=== PATIENT | female | born 1995 | race Caucasian/White ===

== ENCOUNTER 2022-11-09 21:40 | Emergency (ER) | payer OTHER ==
[2022-11-09] MEDS ORDERED: HYDROCODONE/APAP 5/325 MG TAB ONE (22:13)
[2022-11-09] MEDS ORDERED: LIDOCAINE 1% MPF 5 ML VIAL ONE ×2 (22:13→23:28)
[2022-11-09] MEDS ORDERED: BUPIVACAINE 0.5% PF 10 ML VIAL ONE (22:26)
--- NOTE | 2022-11-09 22:46 | RAD REPORT ---
EXAM DESCRIPTION: - Finger-Thumb Left - 11/09/2022 10:25 pm CLINICAL HISTORY: Thumb pain FINDINGS: No fracture or dislocation seen
[2022-11-09] MEDS ORDERED: ONDANSETRON 4 MG (ODT) TAB ONE (22:55)
--- NOTE | 2022-11-09 23:53 | ER ---
Nurse's Notes [facility] Name: Daphney Araiza Age: 26 yrs Sex: Female : 1995 Arrival Date: 11/09/2022 Time: 21:43 Bed 11 Private MD: Diagnosis: Nail avulsion;Crushing injury of left hand, initial encounter Presentation: 11/09 22:23 Chief complaint: Patient states: my nail got removed by a door and it is very painful. ha1 Ebola Screen: No symptoms or risks identified at this time. Initial Sepsis Screen: Does the patient meet any 2 criteria? No. Patient's initial sepsis screen is negative. Does the patient have a suspected source of infection? No. Patient's initial sepsis screen is negative. Risk Assessment: Do you want to hurt yourself or someone else? Patient reports no desire to harm self or others. Onset of symptoms was November 09, 2022. 22:23 Method Of Arrival: Ambulatory 1 22:23 Acuity: KATHARINA 4 ha1 Triage Assessment: 22:28 General: Appears uncomfortable, Behavior is anxious, crying. Pain: Complains of pain in ha1 left hand Pain does not radiate. Pain currently is 10 out of 10 on a pain scale. Cardiovascular: Capillary refill < 3 seconds Patient's skin is warm and dry. Respiratory: Airway is patent Respiratory effort is even, unlabored, Respiratory pattern is regular, symmetrical. GI: No signs and/or symptoms were reported involving the gastrointestinal system. Musculoskeletal: Circulation, motion, and sensation intact. Range of motion: intact in all extremities. Injury Description: Foreign body is located left hand finger. Historical: - Allergies: 22:28 sink metal; ha1 - Home Meds: 22:28 None [Active]; ha1 - PMHx: 22:28 None; ha1 - Immunization history:: Adult Immunizations up to date. - Social history:: Smoking status: Patient denies any tobacco usage or history of. Screenin:31 [facility] ED Fall Risk Assessment (Adult) History of falling in the last 3 months, ha1 including since admission No falls in past 3 months (0 pts) Confusion or Disorientation No (0 pts) Intoxicated or Sedated No (0 pts) Impaired Gait No (0 pts) Mobility Assist Device Used No (0 pt) Altered Elimination No (0 pt) Score/Fall Risk Level 0 - 2 = Low Risk Oriented to surroundings, Maintained a safe environment, Educated pt \T\ family on fall prevention, incl call for assistance when getting out of bed. Abuse screen: Denies threats or abuse. Denies injuries from another. Nutritional screening: No deficits noted. Tuberculosis screening: No symptoms or risk factors identified. Assessment: 22:05 General: see triage assessment . ha1 22:40 Reassessment: Patient and/or family updated on plan of care and expected duration. Pain ha1 level reassessed. Patient is alert, oriented x 3, equal unlabored respirations, skin warm/dry/pink. 5/10. Vital Signs: 22:23 BP 134 / 86; Pulse 108; Resp 20 S; Temp 98.5; Pulse Ox 96% on R/A; Weight 63.5 kg; ha1 Height 5 ft. 7 in. ; Pain 10/10; 22:23 Body Mass Index 21.93 (63.50 kg, 170.18 cm) ha1 22:23 Pain Scale: Adult ha1 ED Course: 21:43 Patient arrived in ED. jj6 21:51 Garcia Duff DO is Attending Physician. ms3 22:27 Finger-Thumb LEFT XRAY In Process Unspecified. EDMS 22:28 Triage completed. ha1 22:31 Patient has correct armband on for positive identification. Bed in low position. Call ha1 light in reach. Side rails up X 1. 23:50 Red Salazar MD is Referral Physician. ms3 Administered Medications: 22:10 Drug: HYDROcodone-acetaminophen PO 5 mg-325 mg 1 tabs Route: PO; kl 22:51 Drug: Ondansetron PO 4 mg Route: PO; kl 22:54 Drug: Bupivacaine Infiltration (0.5 %) 5 ml {Note: administered by Waqas Page.} Volume: kl 10 ml; Route: Infiltration; 22:54 Drug: Lidocaine Infiltration (1 %) 5 ml {Note: administered by Waqas Page .} Volume: 5 kl ml; Route: Infiltration; 23:24 Drug: Lidocaine Infiltration (1 %) 5 mg {Note: administered by care provider.} Route: ha1 Infiltration; Outcome: 23:53 Discharge ordered by . ms3 Signatures: Dispatcher [employer] EDMS Sariah Macario RN RN kl Sims, Marcus, DO DO ms3 Liza Amanda [email or web address] Michelle Gonzalez, RN RN ha1
--- NOTE | 2022-11-09 23:53 | EDPHYS ---
Physician Documentation [facility] Name: Daphney Araiza Age: 26 yrs Sex: Female : 1995 Arrival Date: 11/09/2022 Time: 21:43 Bed 11 Private MD: ED Physician Garcia Duff HPI: 11/09 22:14 This 26 yrs old Female presents to ER via Unassigned with complaints of Hand Injury. ms3 22:14 26-year-old female with no past medical history presents for left thumb pain that she ms3 rates a 7 out of 10 and described as throbbing after smashing it in a car door approximately 1 hour prior to arrival. Patient denies numbness or loss of function.. Historical: - Allergies: 22:28 sink metal; ha1 - Home Meds: 22:28 None [Active]; ha1 - PMHx: 22:28 None; ha1 - Immunization history:: Adult Immunizations up to date. - Social history:: Smoking status: Patient denies any tobacco usage or history of. ROS: 22:14 Constitutional: Negative for fever, and chills. Cardiovascular: Negative for chest ms3 pain, and palpitations. Respiratory: Negative for shortness of breath, cough, wheezing, and pleuritic chest pain, Abdomen/GI: Negative for abdominal pain, nausea, vomiting, diarrhea, and constipation. 22:14 MS/extremity: Positive for laceration, pain, of the Left thumb. Exam: 22:14 Constitutional: This is a well developed, well nourished patient who is awake, alert, ms3 and in no acute distress. Head/Face: Normocephalic, atraumatic. Chest/axilla: Normal chest wall appearance and motion. Nontender with no deformity. Respiratory: Lungs have equal breath sounds bilaterally, clear to auscultation and percussion. No rales, rhonchi or wheezes noted. No increased work of breathing, no retractions or nasal flaring. 22:14 Cardiovascular: Rate: tachycardic, Rhythm: regular, Pulses: no pulse deficits are appreciated, Heart sounds: normal, normal S1and S2. 22:14 Musculoskeletal/extremity: Extremities: noted in the Left distal thumb: laceration, pain, tenderness, Nail avulsion. Vital Signs: 22:23 BP 134 / 86; Pulse 108; Resp 20 S; Temp 98.5; Pulse Ox 96% on R/A; Weight 63.5 kg; ha1 Height 5 ft. 7 in. ; Pain 10/10; 22:23 Body Mass Index 21.93 (63.50 kg, 170.18 cm) ha1 22:23 Pain Scale: Adult ha1 MDM: 22:01 Patient medically screened. ms3 22:14 Differential diagnosis: dislocation, open fracture, Nail avulsion versus nailbed ms3 laceration. 11/09 22:02 Order name: Dressing - Wound ms3 11/09 22:02 Order name: Gloves, Sterile; Complete Time: 22:10 ms3 11/09 22:02 Order name: Setup Suture Tray; Complete Time: 22:10 ms3 11/09 22:01 Order name: Finger-Thumb LEFT XRAY; Complete Time: 22:48 ms3 Administered Medications: 22:10 Drug: HYDROcodone-acetaminophen PO 5 mg-325 mg 1 tabs Route: PO; kl 22:51 Drug: Ondansetron PO 4 mg Route: PO; kl 22:54 Drug: Bupivacaine Infiltration (0.5 %) 5 ml {Note: administered by Waqas Calvo.} Volume: kl 10 ml; Route: Infiltration; 22:54 Drug: Lidocaine Infiltration (1 %) 5 ml {Note: administered by Waqas Calvo .} Volume: 5 kl ml; Route: Infiltration; 23:24 Drug: Lidocaine Infiltration (1 %) 5 mg {Note: administered by care provider.} Route: ha1 Infiltration; Disposition Summary: 11/09/22 23:53 Discharge Ordered Location: Home ms3 Condition: Stable ms3 Diagnosis - Nail avulsion ms3 - Crushing injury of left hand, initial encounter ms3 Followup: ms3 - With: Red Salazar MD - When: 2 - 3 days - Reason: Recheck today's complaints Discharge Instructions: - Discharge Summary Sheet ms3 - Nail Avulsion ms3 - Crush Injury of the Hand, [id number] ms3 Forms: - Medication Reconciliation Form ms3 - Thank You Letter ms3 - Antibiotic Education ms3 - Prescription Opioid Use ms3 Signatures: Dispatcher [employer] Sariah Oro RN RN kl Page, Corey, PA PA cp Sims, Marcus, DO DO ms3 Michelle Gonzalez, RN RN ha1
[2022-11-10] MEDS ORDERED: TDAP (DIPHTH,PERTUSS(ACELL),TET VAC) 0.5 ML VIAL IMVAC ONE (00:07)
[2022-11-10 00:26] VITALS: TEMP 98.5
[2022-11-10 00:27] VITALS: BP 102/70; O2SAT 99
== END 2022-11-10 00:17 | disposition home or self-care (01) ==
LOC: ER 21:40
DX: S61.102A Unspecified open wound of left thumb with damage to nail, initial encounter (principal); M79.645 Pain in left finger(s); S67.02XA Crushing injury of left thumb, initial encounter; X58.XXXA Exposure to other specified factors, initial encounter; Y92.810 Car as the place of occurrence of the external cause
CPT/HCPCS: 73140; 64450; 99283; Q0162; J2001 ×2